=== PATIENT | male | born 1980 | race Caucasian/White ===

== ENCOUNTER 2020-09-29 09:28 | Emergency (ER) | payer SELFPAY ==
[2020-09-29 09:38] VITALS: BP 126/82; PULSE 64; TEMP 98; BMI 32.5
[2020-09-29] MEDS ORDERED: KETOROLAC TROMETHAMINE 30 MG/1 ML VIAL IM ONE (10:11)
[2020-09-29] MEDS ORDERED: LIDOCAINE 5% TOPICAL PATCH TP ONE (10:12)
[2020-09-29] MEDS ORDERED: CYCLOBENZAPRINE HCL 10 MG TABLET (FP) PO ONE (10:12)
[2020-09-29] MEDS ORDERED: CYCLOBENZAPRINE HCL 10 MG TABLET (FP) ONE (10:15)
[2020-09-29] MEDS ORDERED: LIDOCAINE 5% TOPICAL PATCH ONE (10:15)
[2020-09-29] MEDS ORDERED: KETOROLAC TROMETHAMINE 30 MG/1 ML VIAL ONE (10:16)
[2020-09-29] MEDS ORDERED: LIDOCAINE PATCH REMOVAL MC ONE (22:00)
== END 2020-09-29 11:45 | disposition home or self-care (01) ==
LOC: JERFT 09:28 → JER 09:28 → JERFT 11:45
PROC: 3E0233Z Introduction of Anti-inflammatory into Muscle, Percutaneous Approach (ICD-10-PCS; principal; 2020-09-29)
DX: M54.5 Low back pain (principal); L73.9 Follicular disorder, unspecified
CPT/HCPCS: 72100-TC-FY; 99284-25

== ENCOUNTER 2020-10-08 19:42 | Emergency (ER) | payer OTHER ==
[2020-10-08 19:57] VITALS: BP 120/76; PULSE 104; TEMP 98.3; BMI 32.5
[2020-10-08] MEDS ORDERED: ACETAMINOPHEN 1000 MG/100 ML VIAL (NON FORMULARY) IVPB ONE (21:44)
[2020-10-08] MEDS ORDERED: DEXAMETHASONE LIQUID 0.5 MG/5 ML PO ONE (21:44)
[2020-10-08] MEDS ORDERED: diazePAM 5 MG TABLET PO ONE (21:44)
[2020-10-08] MEDS ORDERED: KETOROLAC TROMETHAMINE 60 MG/2 ML VIAL IM ONE (21:44)
[2020-10-08] MEDS ORDERED: LIDOCAINE 5% TOPICAL PATCH TP ONE (21:45)
[2020-10-08] MEDS ORDERED: LIDOCAINE 5% TOPICAL PATCH ONE (22:12)
[2020-10-08] MEDS ORDERED: DEXAMETHASONE SOD PHOSPHATE 10 MG/1 ML VIAL ONE (22:12)
[2020-10-08] MEDS ORDERED: KETOROLAC TROMETHAMINE 30 MG/1 ML VIAL ONE (22:13)
[2020-10-08] MEDS ORDERED: diazePAM 5 MG TABLET ONE (22:13)
[2020-10-08] MEDS ORDERED: oxyCODONE HCL 5 MG TABLET PO ONE (23:47)
[2020-10-09] MEDS ORDERED: oxyCODONE HCL 5 MG TABLET ONE (00:10)
== END 2020-10-09 00:47 | disposition left against medical advice (07) ==
LOC: JER 19:42
PROC: 3E0233Z Introduction of Anti-inflammatory into Muscle, Percutaneous Approach (ICD-10-PCS; principal; 2020-10-08)
DX: M54.5 Low back pain (principal)
CPT/HCPCS: 72131-TC; 99284-25